=== PATIENT | male | born 1970 | race Caucasian/White ===

== ENCOUNTER → 2017-08-06 | Day surgery (SDC) | payer BC ==
[2017-08-05 16:12] LABS: BASOPHILS % 0.5 % (0.0-1.0); EOSINOPHILS # (AUTO) 0.2 (0.0-0.4); EOSINOPHILS % 2.4 % (0.0-6.0); HEMATOCRIT 40.3 % (38.2-49.6); HEMOGLOBIN 13.9 g/dL (14.0-18.0); LYMPHOCYTES # (AUTO) 3.2 (1.0-3.2); LYMPHOCYTES % 38.9 % (18.0-39.1); MEAN CORPUSCULAR HEMOGLOBIN 28.2 pg (28-32); MEAN CORPUSCULAR HGB CONC 34.5 g/dL (31-35); MEAN CORPUSCULAR VOLUME 81.7 fL (81-99); MONOCYTES # (AUTO) 0.5 (0.2-0.8); MONOCYTES % 5.9 % (4.4-11.3); NEUTROPHILS # (AUTO) 4.3 (2.1-6.9); NEUTROPHILS % 52.2 % (38.7-80.0); PLATELET COUNT 295 x10e3/uL (140-360); RED BLOOD COUNT 4.93 x10e6/uL (4.3-5.7); RED CELL DISTRIBUTION WIDTH 13.2 % (11.7-14.4)
[2017-08-05 16:32] LABS: ALANINE AMINOTRANSFERASE 27 IU/L (0-55); ALBUMIN 3.9 g/dL (3.5-5.0); ALKALINE PHOSPHATASE 68 IU/L (40-150); ANION GAP 14.5 mmol/L (8-16); BLOOD UREA NITROGEN 15 mg/dL (7-26); BUN/CREATININE RATIO 15 (6-25); CALCIUM 10.2 mg/dL (8.4-10.2); CARBON DIOXIDE 26 mmol/L (22-29); CHLORIDE 102 mmol/L (98-107); CHOL/HDL RATIO 3.6 (3.9-4.7); CHOLESTEROL 153 MD/DL (0-199); CREATININE, SERUM 0.99 mg/dL (0.72-1.25); EST GLOMERULAR FILTRATION RATE > 60 ML/MIN (60-); GLUCOSE 95 mg/dL (74-118); HDL CHOLESTEROL 43 MG/DL (40-60); LDL CHOLESTEROL 84 MG/DL (60-130); POTASSIUM 4.5 mmol/L (3.5-5.1); SODIUM 138 mmol/L (136-145); TRIGLYCERIDES 129 MG/DL (0-149)
[~2017-08-06] VITALS: Ht 182.9 cm; Wt 111.1 kg
[~2017-08-06] MED LIST: ASPIRIN 325 MG TAB ONE; BIVALIRUDIN 250 MG/VIAL IV ONE; FENTANYL CITRATE/PF 100MCG/2 ML INJ ONE; HEPARIN SOD (PORCINE) 1000 UNIT/ML 30ML ONE; HEPARIN SOD/SOD CHLORIDE 2,000 ML ONE; IOPAMIDOL 370 MG/ML 200 ML INFUS..BTL INJ ONE; LIDOCAINE HCL 2% LOCAL 20 ML VIAL ONE; LISINOPRIL10 MG PO; METFORMIN HCL500 MG PO; MIDAZOLAM HCL 2 MG/2 ML VIAL ONE; NITROGLYCERIN/D5W 200 MCG/ML 250 ML ONE; PRASUGREL 10 MG TAB ONE; SODIUM CHLORIDE 0.9% 1000ML 1,000 ML ONE; SODIUM CHLORIDE 0.9% 50ML 50 ML ONE; VERAPAMIL HCL 2.5 MG/ML 2 ML VIAL ONE
[2017-08-06 07:00] VITALS: BP 121/72
--- NOTE | 2017-08-06 10:07 | Operative Report ---
DATE OF PROCEDURE: August 06, 2017 CARDI[facility] [employer] APPLIANCE TECH PROCEDURE NOTE INDICATION: Coronary artery disease, abnormal stress test with apical ischemia. PROCEDURES PERFORMED: 1. Left heart catheterization, selective coronary angiography. 2. Percutaneous transluminal coronary angioplasty and drug-eluting stent placed in the proximal left anterior descending artery. 3. Deployment of right wrist transradial band. COMPLICATIONS: None. BLOOD LOSS: 5 mL. RECOMMENDATIONS: Dual antiplatelet therapy for at least 6 months. Aggressive medical therapy for coronary artery disease. Access obtained in the right radial artery. Using ultrasound guidance, 5-Irish sheath was placed. Diagnostic coronary angiogram revealed patent left main, left anterior descending artery proximal 50%, mid 90%. Diagonal was a large vessel. Mid and distal left anterior descending artery diffuse 30% to 50%, circumflex mild 30% to 50% stenosis. Right coronary artery had mild 20% stenosis with excellent flow. LV end-diastolic pressure was 12. No gradient across the aortic valve on pullback. A decision was made to intervene on the left anterior descending artery. The patient received intravenous Angiomax and oral Effient for anticoagulation. A 5-Irish EBU 3.75 guiding catheter was used to cannulate the left main and a wire was advanced across the lesion for support, pre-dilatation using a 2.5 mm balloon, following which a 2.75 x 24 mm Promus Synergy stent was deployed, post dilated to 3.5 mm. Final angiography demonstrated less than 10% residual stenosis, UMA-3 flow, no complications. Wire and guide were removed. Right wrist TR band applied. Patient discharged home same day. Job#: [id number]
[2017-08-06 14:13] VITALS: BP 120/72
== END | disposition home or self-care (01) ==
LOC: CATH LAB 07:59
PROVIDERS: ATTEND Internal Medicine Interventional Cardiology
DX: I25.119 Atherosclerotic heart disease of native coronary artery with unspecified angina pectoris (principal); R94.39 Abnormal result of other cardiovascular function study; I10 Essential (primary) hypertension; Z01.812 Encounter for preprocedural laboratory examination; Z68.33 Body mass index [BMI] 33.0-33.9, adult; Z82.49 Family history of ischemic heart disease and other diseases of the circulatory system
CPT/HCPCS: 36415; 80053; 80061; 85025; 92928; 93458; C1725; C1874; C1887; C1894; J0583; J1644; J2001; J2250; J7030; Q9967; 36140; 77002; 92920; 93452; C9600